=== PATIENT | male | born 1960 | race American Indian/Alaskan Native ===

== ENCOUNTER 2021-12-01 16:38 | Emergency (ER) | payer BC ==
[2021-12-01 17:23] LABS: ESTIMATED GFR 98 mL/min (>60)
[2021-12-01] MEDS ORDERED: OLANZapine 10 MG Vial IM ONE (17:30)
[2021-12-01] MEDS ORDERED: OLANZapine 10 MG Vial ONE (17:32)
== END 2021-12-01 20:50 | disposition home or self-care (01) ==
LOC: FB.ED 16:38
DX: F23 Brief psychotic disorder (principal); F12.10 Cannabis abuse, uncomplicated; Z79.82 Long term (current) use of aspirin; Z79.899 Other long term (current) drug therapy; Z20.822 Contact with and (suspected) exposure to COVID-19
CPT/HCPCS: 36415; 70450; 80053; 80307; 84484; 85025; 93005; 96372; 99283; 99285; J3490; U0002